=== PATIENT | female | born 1990 | race African-American/Black ===

== ENCOUNTER 2017-03-31 18:12 | Emergency (ER) | payer SELFPAY ==
[~2017-03-31] VITALS: Ht 157.5 cm; Wt 47.0 kg
[2017-03-31 18:15] VITALS: BP 122/70; PULSE 121; RESP 12; TEMP 98.2; O2SAT 96
[2017-03-31 18:22] VITALS: PULSE 116
[2017-04-01] MEDS ORDERED: TERC0.8C VAGINAL (16:06)
== END 2017-03-31 19:25 | disposition left against medical advice (07) ==
LOC: NED 18:12
DX: R05 Cough (principal)
CPT/HCPCS: 99281

== ENCOUNTER 2017-11-06 23:04 | Emergency (ER) | payer OTHER ==
[~2017-11-06 23:04] MED LIST: PREN1CAP33 PO; TERC0.8C VAGINAL
--- NOTE | 2017-11-06 23:49 | PD ---
HPI Chief Complaint Contractions Date Seen: November 06, 2017 Time Seen: 23:45 Travel History International Travel<30 Days: No Contact w/Intl Traveler<30Days: No Known Affected Area: No History of Present Illness HPI Patient is 27-year-old black female 40 weeks [facility] presents complaining of contractions and spotting, no fluid leakage. heart rate tracing is reactive and she is vicky every 2-3 minutes Weeks Gestation: 40 Para: 1 : 2 History Obstetric History Obstetric History 1 vaginal delivery Social History Alcohol Use: No Tobacco Use: No Substance Abuse: No Allergies-Medications (Allergen,Severity, Reaction): Coded Allergies: ibuprofen (Unverified Allergy, Intermediate, HIVES, 06/24/17) Home Meds Active Scripts Vit W/ Fe Polysacch C (Vitafol Fe+ 90-1-200 & 50 mg) 90 Mg Iron-1 Mg- 50 Mg-200 Mg Cap, 1 TAB PO DAILY, #30 BOTTLE 11 Refills Prov:Makayla Esqueda [facility] 06/24/17 Terconazole Vaginal Cream (Terconazole Vaginal Cream) 0.8 % Cream, 1 APPL VAGINAL HS for Fungal Infection, #20 GM 1 Refill For 3 days. Prov:Ya Carr CNM [facility] 06/18/17 Review of Systems General / Constitutional: No: Fever, Weight Gain, Chills, Other Eyes: No: Diploplia, Blurred Vision, Visual changes, Pain, Photophobia HENT: No: Headaches, Vertigo, Lightheadedness Cardiovascular: No: Irregular Rhythm, Chest Pain or Discomfort, Palpitations, Tachycardia, Syncope, Varicosities, Edema, Cyanosis Respiratory: No: Cough, Short of Breath, Other Gastrointestinal: No: Nausea, Vomiting, Diarrhea Genitourinary: No: Decreased Urinary Output, Oliguria Musculoskeletal: No: Limited ROM, Weakness, Cramping, Edema, Pain Skin: No Rash, No Itching, No Dryness, No Lumps, No Change in Pigmentation, No Change in Nails, No Alopecia, No Lesions Neurologic: No: Weakness, Dizziness, Syncope, Focal Abnormalities, Coordination Problem, Headache, Slurred Speech, Seizures Psychiatric: No: Depression, Suicidal Ideations, Homicidal Ideation Endocrine: No: Heat Intolerance, Cold Intolerance, Polydipsia, Polyuria, Other Physical Exam Narrative GENERAL: Well-nourished, well-developed patient. SKIN: Warm and dry. HEAD: Normocephalic and atraumatic. EYES: No scleral icterus. No injection or drainage. ENT: No nasal drainage noted. Mucous membranes pink. Airway patent. NECK: Supple, trachea midline. No JVD. CARDIOVASCULAR: Regular rate and rhythm without murmurs, gallops, or rubs. RESPIRATORY: Breath sounds equal bilaterally. No accessory muscle use. BREASTS: Bilateral exam showed no masses , no retractions, no nipple discharge. ABDOMEN/GI: Abdomen soft, non-tender, bowel sounds present, no rebound, no guarding Gravid to [37-] weeks size Fundal Height: [37-] GENITOURINARY: External Genitalia: intact and normal in appearance BUS glands: [-] Cervix: [post-] Dilatation: [0-] Effacement: [0-] Station: [-3] Presentation: [-vtx by US] Membranes: [intact ] Uterine Contractions: [-q 3 min] FHT's: Category: [-1] Baseline: [133-] Reactive: [R-] Variability: [-mod] Decels: [none-] EXTREMITIES: No cyanosis or edema. BACK: Nontender without obvious deformity. No CVA tenderness. NEUROLOGICAL: Awake and alert. Motor and sensory grossly within normal limits. Five out of 5 muscle strength in all muscle groups. Normal speech. MDM Interpretation(s) 27-year-old white female at 40 weeks with contractions and minimal spotting, no leakage of fluid. Cervix is still closed was closed in a prior check and is still essentially closed and very high, ultrasound was done to assure there was vertex and it is vertex, NST is reactive and she is vicky every 2-3 minutes but yet she is not in active labor cervix is still closed Plan Plan to discharge home to bedrest, increase fluids, Tylenol as needed, heating pad or hot bath or symptoms, return for increasing pain or other symptoms Diagnosis Diagnosis: Primary Impression: [place] contractions Additional Impression: 40 weeks gestation of Disposition: DISCHARGE HOME Condition: Stable Gumaro Martinez II, MD November 06, 2017 23:49
== END 2017-11-07 00:03 | disposition home or self-care (01) ==
LOC: HOBED 23:04
DX: O47.1 False labor at or after 37 completed weeks of gestation (principal); Z3A.40 40 weeks gestation of pregnancy; Z88.6 Allergy status to analgesic agent
CPT/HCPCS: 59025; 76815

== ENCOUNTER 2017-11-07 02:57 | Inpatient (IN) | payer OTHER ==
[~2017-11-07] VITALS: Ht 160 cm; Wt 60.0 kg
[2017-11-07] MEDS: LACTATED RINGER'S 1000 ML IV SCH ×2 (02:23→03:34)
--- NOTE | 2017-11-07 03:14 | HHI.HP ---
History & Physical H&P OB ED Note (Detail) Patient Name: Cuca Leong Unit Number: [id number] Date of : 1990 Patient Status: Departed Emergency Room Attending Doctor: Gumaro Martinez II, MD HPI HPI Chief Complaint Contractions Date Seen: November 06, 2017 Time Seen: 23:45 Travel History International Travel<30 Days: No Contact w/Intl Traveler<30Days: No Known Affected Area: No History of Present Illness HPI Patient is 27-year-old black female 40 weeks [facility] presents complaining of contractions and spotting, no fluid leakage. heart rate tracing is reactive and she is vicky every 2-3 minutes Weeks Gestation: 40 Para: 1 : 2 History (Limited) History Obstetric History Obstetric History 1 vaginal delivery Social History Alcohol Use: No Tobacco Use: No Substance Abuse: No Allergies-Medications Allergies-Medications (Allergen,Severity, Reaction): Coded Allergies: ibuprofen (Unverified Allergy, Intermediate, HIVES, 06/24/17) Home Meds Active Scripts Vit W/ Fe Polysacch C (Vitafol Fe+ 90-1-200 & 50 mg) 90 Mg Iron-1 Mg- 50 Mg-200 Mg Cap, 1 TAB PO DAILY, #30 BOTTLE 11 Refills Prov:Makayla Esqueda [facility] 06/24/17 Terconazole Vaginal Cream (Terconazole Vaginal Cream) 0.8 % Cream, 1 APPL VAGINAL HS for Fungal Infection, #20 GM 1 Refill For 3 days. Prov:Ya Carr CNM [facility] 06/18/17 ROS Review of Systems General / Constitutional: No: Fever, Weight Gain, Chills, Other Eyes: No: Diploplia, Blurred Vision, Visual changes, Pain, Photophobia HENT: No: Headaches, Vertigo, Lightheadedness Cardiovascular: No: Irregular Rhythm, Chest Pain or Discomfort, Palpitations, Tachycardia, Syncope, Varicosities, Edema, Cyanosis Respiratory: No: Cough, Short of Breath, Other Gastrointestinal: No: Nausea, Vomiting, Diarrhea Genitourinary: No: Decreased Urinary Output, Oliguria Musculoskeletal: No: Limited ROM, Weakness, Cramping, Edema, Pain Skin: No Rash, No Itching, No Dryness, No Lumps, No Change in Pigmentation, No Change in Nails, No Alopecia, No Lesions Neurologic: No: Weakness, Dizziness, Syncope, Focal Abnormalities, Coordination Problem, Headache, Slurred Speech, Seizures Psychiatric: No: Depression, Suicidal Ideations, Homicidal Ideation Endocrine: No: Heat Intolerance, Cold Intolerance, Polydipsia, Polyuria, Other Physical Exam Physical Exam Narrative GENERAL: Well-nourished, well-developed patient. SKIN: Warm and dry. HEAD: Normocephalic and atraumatic. EYES: No scleral icterus. No injection or drainage. ENT: No nasal drainage noted. Mucous membranes pink. Airway patent. NECK: Supple, trachea midline. No JVD. CARDIOVASCULAR: Regular rate and rhythm without murmurs, gallops, or rubs. RESPIRATORY: Breath sounds equal bilaterally. No accessory muscle use. BREASTS: Bilateral exam showed no masses , no retractions, no nipple discharge. ABDOMEN/GI: Abdomen soft, non-tender, bowel sounds present, no rebound, no guarding Gravid to [37-] weeks size Fundal Height: [37-] GENITOURINARY: External Genitalia: intact and normal in appearance BUS glands: [-] Cervix: [ant-] Dilatation: [3-4-] Effacement: [70-] Station: [-2] Presentation: [-vtx by US] Membranes: [intact ] Uterine Contractions: [-q 3 min] FHT's: Category: [-1] Baseline: [133-] Reactive: [R-] Variability: [-mod] Decels: [none-] EXTREMITIES: No cyanosis or edema. BACK: Nontender without obvious deformity. No CVA tenderness. NEUROLOGICAL: Awake and alert. Motor and sensory grossly within normal limits. Five out of 5 muscle strength in all muscle groups. Normal speech. Data Data [facility] MDM Interpretation(s) 27-year-old white female at 40 weeks with contractions and minimal spotting, no leakage of fluid. Cervix is 3-4 cm/70/-2 ultrasound was done to assure there was vertex and it is vertex, NST is reactive and she is vicky every 2-3 minutes Plan to Admit to L&D Diagnosis Diagnosis: Primary Impression: Labor Additional Impression: 40 weeks gestation of Disposition: ADMIT Condition: Stable Gumaro Martinez II, MD November 07, 2017 Gumaro Martinez II, MD November 07, 2017 03:14
[2017-11-07] MEDS ORDERED: LACTATED RINGER'S 1000 ML BOLUS IV PRN (03:30)
[2017-11-07] MEDS ORDERED: LIDOCAINE HCL 1% 50 ML VIAL INFIL PRN (03:30)
[2017-11-07] MEDS ORDERED: OXYTOCIN 30 UNITS 500ML PREMIX IV ONE (03:30)
[2017-11-07] MEDS ORDERED: CITRIC ACID-SODIUM CITRATE LIQ 30 ML UDC PO SCH (03:30)
[2017-11-07] MEDS ORDERED: NS 1000 ML IV PRN (03:30)
[2017-11-07] MEDS ORDERED: ONDANSETRON ODT 4 MG TAB PO PRN ×2 (03:30→08:00)
[2017-11-07] MEDS ORDERED: NS 500 ML BOLUS IV PRN (03:30)
[2017-11-07] MEDS ORDERED: LIDOCAINE HCL 1% 50 ML VIAL I-DERMAL PRN (03:30)
[2017-11-07] MEDS ORDERED: MINERAL OIL 10 ML VIAL TOPICAL PRN (03:30)
[2017-11-07] MEDS ORDERED: NO SYSTEM NARCOTICS PRN (04:15)
[2017-11-07] MEDS ORDERED: ePHEDrine/NS 25 MG/5 ML SYRINGE IV PUSH PRN (04:15)
[2017-11-07] MEDS ORDERED: DO NOT ADMINISTER ANTICOAGULANTS PRN (04:15)
[2017-11-07] MEDS ORDERED: fentaNYL 2MCG-BUPIV 0.125% 100 ML EPIDURAL PRN (04:15)
[2017-11-07 05:17] LABS: BILIRUBIN, URINE NEG (NEG); BLOOD, URINE MOD (NEG); GLUCOSE,URINE NEG (NEG); KETONE, URINE NEG (NEG); NITRITE,URINE NEG (NEG); PH, URINE 6.5 (5.0-8.5); URINE COLOR LIGHT-YELLOW (YELLW/STRAW); URINE LEUKOCYTE ESTERASE TRACE (NEG)
[2017-11-07] MEDS ORDERED: TERBUTALINE INJ 1 MG/ML AMP ONE (06:14)
[2017-11-07 06:28] LABS: BACTERIA, URINE RARE /hpf; RBC, URINE 0-3 /hpf (0-3); WBC, URINE 0-2 /hpf (0-5)
[2017-11-07] MEDS ORDERED: ACETAMINOPHEN 1000 MG/100 ML 100 ML IV ONE (06:39)
[2017-11-07] MEDS ORDERED: MORPHINE SULFATE PF 5 MG/10 ML VIAL ONE (06:39)
[2017-11-07 07:40] LABS: AUTOMATED NEUTROPHIL # 8.1 TH/MM3 (1.8-7.7); BASOPHIL # 0.1 TH/MM3 (0-0.2); BASOPHIL % 0.5 % (0.0-2.0); EOSINOPHIL # 0.1 TH/MM3 (0-0.4); EOSINOPHIL % 0.6 % (0.0-4.0); HEMATOCRIT 31.7 % (35.0-46.0); HEMOGLOBIN 10.3 GM/DL (11.6-15.3); LYMPH % 17.7 % (9.0-44.0); MEAN CELL VOLUME 85.6 FL (80.0-100.0); MEAN CORPUSCULAR HEMOGLOBIN 27.7 PG (27.0-34.0); MEAN CORPUSCULAR HGB CONC 32.4 % (32.0-36.0); MEAN PLATELET VOLUME 11.1 FL (7.0-11.0); NEUT % 72.2 % (16.0-70.0); PLATELET COUNT 163 TH/MM3 (150-450); RED BLOOD COUNT 3.71 MIL/MM3 (4.00-5.30); RED CELL DISTRIBUTION WIDTH 16.1 % (11.6-17.2); WHITE BLOOD COUNT 11.3 TH/MM3 (4.0-11.0)
[2017-11-07] MEDS ORDERED: ZOLPIDEM TARTRATE 5 MG TAB PO PRN (08:00)
[2017-11-07] MEDS ORDERED: IBUPROFEN 600 MG TAB PO PRN (08:00)
[2017-11-07] MEDS ORDERED: ACETAMINOPHEN 325 MG TAB PO PRN (08:00)
[2017-11-07] MEDS ORDERED: SODIUM CHLORIDE 0.9% FLUSH 10 ML FLUSH IV FLUSH PRN (08:00)
[2017-11-07] MEDS ORDERED: OXYTOCIN 30 UNITS-500ML PREMIX 500 ML IV ONE (08:00)
[2017-11-07] MEDS ORDERED: KETOROLAC TROMETHAMINE 60 MG/2 ML (IM) VIAL IM PRN (08:00)
[2017-11-07] MEDS: SODIUM CHLORIDE 0.9% FLUSH 10 ML FLUSH IV FLUSH SCH ×2 (09:00→21:00)
--- NOTE | 2017-11-07 09:04 | RADRPT ---
EXAM DATE/TIME: 11/07/2017 07:33 [place] COMPARISON: No previous studies available for comparison. INDICATIONS : Foreign body. Instrument count. . MEDICAL HISTORY : None. SURGICAL HISTORY : None. ENCOUNTER: Initial ACUITY: 1 day PAIN SCORE: Non-responsive. LOCATION: Abdomen. FINDINGS: Frontal view of the right lower quadrant/pelvis demonstrates no metallic foreign bodies. CONCLUSION: No metallic foreign body seen. Steve Mayer MD on November 07, 2017 at 9:01 Board Certified Radiologist. This report was verified electronically.
--- NOTE | 2017-11-07 09:27 | MP ---
cc: Gumaro Martinez MD DATE OF OPERATION: PREOPERATIVE DIAGNOSIS: Nonreassuring heart rate tracing, vaginal bleeding. POSTOPERATIVE DIAGNOSIS: Nonreassuring heart rate tracing, vaginal bleeding, small abruption of the placenta, thick meconium amniotic fluid. PROCEDURE PERFORMED: Primary low transverse section. SURGEON: Dr. Martinez. ANESTHESIA: Epidural. PREOP NOTE: The patient is a 27-year-old black female, G2, P1, at 40 weeks, who presented in labor with contractions and vaginal spotting. She was admitted in labor at 34 cm, was allowed to labor on her own and she had spontaneous rupture of membranes with a large amount of bloody fluid and then continued to pass small blood clots and bleeding as she dilated her cervix to 8 cm. It was at that point that the baby began to not tolerate labor with large late decelerations. It was felt the baby cannot tolerate further labor and that she was not close enough to being able to deliver vaginally, so a section was opted for. PROCEDURE: The patient was taken to the operating room and placed in supine position on the operating table. With adequate epidural anesthesia administered, she was prepped and draped. A Pfannenstiel incision was made in the lower abdomen and carried through fascia sharply. The fascia dissected off the rectus muscle and the rectus split in the midline. The abdominal cavity was entered sharply. The peritoneal cavity entered superiorly inferiorly and stretched open. The bladder blade was placed in the lower edge of the incision. Visceral peritoneum reflected off lower uterine segment and placed on the bladder blade. A transverse hysterotomy was made, extended bluntly bilaterally and a female infant was delivered at 6:46 a.m. Apgars 8 and 9, weight 2715 grams. Cord pH 7.23. Cord blood obtained. There was no delayed cord clamping. Placenta manually extracted and noted to have a small area of what appeared to be abruption on its margin and was sent to pathology. The uterus exteriorized. The uterus cleaned of all remnants of membrane and the hysterotomy closed in running layer 0 chromic, followed by imbricating suture of same. Hemostasis was achieved with a couple of stick ties, a [id number] in the lower uterine segment. The bladder reapproximated with a running layer, 2-0 Vicryl. The uterus replaced in peritoneal cavity. Ovaries and tubes within normal limits. The parietal peritoneum closed in running layer of 2-0 Vicryl. Muscle reapproximated with stick ties of chromic and Vicryl. The fascia was then closed in running layer of 0 Vicryl. Skin closed with 3-0 Monocryl subcuticular stitch. Pressure dressing applied. Estimated blood loss was 500 mL. There were no complications. There was not a sponge count because of the emergent nature of the procedure, but x-ray was shot after the procedure and was free of any retained sponge or foreign body. The patient was taken to recovery in stable condition. MD PRISCILLA Lopez/MANSI , 07:43 AM , 09:26 AM
[2017-11-07] MEDS ORDERED: EPIDURAL-NALOXONE HCL 0.4 MG/ML AMP IV PUSH PRN (10:15)
[2017-11-07] MEDS ORDERED: EPIDURAL-NO SYSTEMIC NARCOTICS PRN (10:15)
[2017-11-07] MEDS ORDERED: EPIDURAL-DIPHENHYDRAMINE HCL 50 MG/ML VIAL IV PUSH PRN (10:15)
[2017-11-07] MEDS ORDERED: EPIDURAL-DO NOT ADMINISTER ANTICOAGULANTS PRN (10:15)
[2017-11-07] MEDS ORDERED: OXYTOCIN 10 UNIT/ML AMP IV ONE (12:00)
[2017-11-07] MEDS ORDERED: ONDANSETRON HCL 4 MG/2 ML VIAL IV ONE (12:00)
[2017-11-07] MEDS ORDERED: LACTATED RINGER'S 1000 ML INJ 2,000 ML IV ONE (12:00)
[2017-11-07] MEDS ORDERED: DEXAMETHASONE SOD PHOS 4 MG/ML VIAL IV ONE (12:00)
[2017-11-07] MEDS ORDERED: ceFAZolin INJ 1,000 MG VIAL IV ONE (12:00)
[2017-11-07] MEDS ORDERED: LIDOCAINE 2%/EPINEPHrine PF 1:200,000 20ML SDV OTHER ONE (12:00)
[2017-11-07] MEDS ORDERED: LACTATED RINGER'S 1000 ML INJ 1,000 ML IV SCH (12:49)
[2017-11-07] MEDS ORDERED: OXYTOCIN 30 UNITS-500ML PREMIX 500 ML IV PRN (13:00)
[2017-11-07] MEDS: ACETAMINOPHEN 1000 MG/100 ML 100 ML IV SCH ×2 (15:44→23:00)
[2017-11-07] MEDS: EPIDURAL-DIPHENHYDRAMINE HCL 50 MG CAP PO PRN (15:44)
[2017-11-07] MEDS: oxyCODONE/ACETAMINOPHEN 5 MG/325 MG TAB PO PRN ×2 (15:44→21:07)
[2017-11-07] MEDS: DOCUSATE SODIUM 50 MG/SENNA 8.6 MG TAB PO PRN (21:07)
[2017-11-08] MEDS: oxyCODONE/ACETAMINOPHEN 5 MG/325 MG TAB PO PRN ×5 (02:29→19:46)
[2017-11-08] MEDS: EPIDURAL-DIPHENHYDRAMINE HCL 50 MG CAP PO PRN (02:55)
[2017-11-08 05:55] LABS: AUTOMATED NEUTROPHIL # 10.3 TH/MM3 (1.8-7.7); BASOPHIL % 0.2 % (0.0-2.0); EOSINOPHIL # 0.1 TH/MM3 (0-0.4); EOSINOPHIL % 0.4 % (0.0-4.0); HEMATOCRIT 25.5 % (35.0-46.0); HEMOGLOBIN 8.2 GM/DL (11.6-15.3); LYMPHOCYTE # 1.7 TH/MM3 (1.0-4.8); MEAN CELL VOLUME 85.5 FL (80.0-100.0); MEAN CORPUSCULAR HEMOGLOBIN 27.4 PG (27.0-34.0); MEAN PLATELET VOLUME 10.2 FL (7.0-11.0); MONO % 7.9 % (0.0-8.0); NEUT % 78.5 % (16.0-70.0); PLATELET COUNT 164 TH/MM3 (150-450); RED BLOOD COUNT 2.98 MIL/MM3 (4.00-5.30); RED CELL DISTRIBUTION WIDTH 16.1 % (11.6-17.2); WHITE BLOOD COUNT 13.2 TH/MM3 (4.0-11.0)
[2017-11-08] MEDS: SODIUM CHLORIDE 0.9% FLUSH 10 ML FLUSH IV FLUSH SCH (09:00)
--- NOTE | 2017-11-08 09:01 | HHI.OB ---
Subjective Post Operative Day: 1 Remarks Patient seen and examined this morning. AFVSS overnight. Postoperative day #1. Patient reports pain 7 out of 10 more severe on right lower quadrant. Incision not draining. Decreased lochia. Denies dysuria. No breast tenderness. Appetite good. No nausea or vomiting. No bowel movement yet. Ambulating well. Denies calf pain, dizziness, shortness of breath, or cough. She otherwise has no other complaints or concerns this morning. Objective Result Diagram: 11/08/17 0539 Objective Remarks GENERAL: Well-nourished, well-developed patient. CARDIOVASCULAR: Regular rate and rhythm without murmurs, gallops, or rubs. RESPIRATORY: Breath sounds equal bilaterally. No accessory muscle use. ABDOMEN/GI: Abdomen soft, tender to palpation to on Right lower quadrant, bowel sounds present. Incision: Clean, dry and intact. Fundus: Firm, non-tender at umbilicus. GENITOURINARY: Light to moderate bleeding. EXTREMITIES: No cyanosis or edema, non-tender, without signs of DVT. Medications and IVs Current Medications Medications (Trade) Dose Ordered Sig/Claudia Route Start Time Stop Time Status Last Admin Lactated Ringer's 1,000 ml @ 3,000 mls/hr BOLUS PRN IV 11/07/17 03:30 Sodium Chloride 500 ml @ 1,000 mls/hr BOLUS PRN IV 11/07/17 03:30 Sodium Chloride 1,000 ml @ 100 mls/hr Q10H PRN IV 11/07/17 03:30 (Bicitra Liq) 30 ml ONLINE FACILITATOR PO 11/07/17 03:30 11/10/17 03:29 (Muri-Lube Oil) 10 ml UNSCH PRN TOPICAL 11/07/17 03:30 Fentanyl/ Bupivacaine HCl 100 ml @ 0 mls/hr TITRATE PRN EPIDURAL 11/07/17 04:15 Oxytocin 500 ml @ 100 mls/hr UNSCH X1 PRN IV 11/07/17 13:00 11/08/17 12:59 (NS Flush) 2 ml BID IV FLUSH 11/07/17 09:00 (NS Flush) 2 ml UNSCH PRN IV FLUSH 11/07/17 08:00 (Mylicon Chew) 80 mg QID PRN PO 11/07/17 08:00 (Tylenol) 650 mg Q6H PRN PO 11/07/17 08:00 11/07/17 11:34 (Percocet 5-325 Mg) 1 tab Q4H PRN PO 11/07/17 08:00 11/08/17 07:16 (Percocet 5-325 Mg) 2 tab Q4H PRN PO 11/07/17 08:00 (Mandy-Colace) 2 tab Q12H PRN PO 11/07/17 08:00 11/07/17 21:07 (Ambien) 5 mg HS PRN PO 11/07/17 08:00 (M-M-R Ii Inj) 0.5 ml ONCE ONCE SQ 11/08/17 16:00 11/08/17 16:01 (Boostrix Inj) 0.5 ml ONCE ONCE IM 11/08/17 16:00 11/08/17 16:01 (Zofran Odt) 4 mg Q6H PRN PO 11/07/17 08:00 ([facility] Nursing Information) NO SYSTEMIC NARCOTICS TO BE GIVEN FO... UNSCH PRN .XX 11/07/17 10:15 11/08/17 10:14 (Narcan Inj) 0.4 mg UNSCH PRN IV PUSH 11/07/17 10:15 11/08/17 10:14 (Benadryl Inj) 25 mg Q6H PRN IV PUSH 11/07/17 10:15 11/08/17 10:14 (Benadryl) 50 mg Q6H PRN PO 11/07/17 10:15 11/08/17 10:14 11/08/17 02:55 ([facility] Nursing Information) ALL NURSING DEPARTMENTS UNSCH PRN .XX 11/07/17 10:15 11/08/17 10:14 Assessment/Plan Problem List: (1) 40 weeks gestation of ICD Codes: Z3A.40 - 40 weeks gestation of Plan: 27 year-old G 2 p2 POD#2 s/p . 1. Postoperative Care - AFVSS - Incision c/d/i -Patient with slight decrease in postop H&H to 8.2. Follow repeat H&H - Percocet and Motrin prn pain - Encouraged OOB, as tolerated - Advised pelvic rest x 6 weeks - Contraception: Patient interested in OCPs for control were discussed with her doctor as an outpatient - F/u in 1 week with OB provider for incision check (2) Status post ICD Codes: Z98.891 - History of uterine scar from previous surgery Pham Echeverria MD, R1 November 08, 2017 09:01
[2017-11-08 11:40] LABS: AUTOMATED NEUTROPHIL # 10.6 TH/MM3 (1.8-7.7); BASOPHIL % 0.3 % (0.0-2.0); EOSINOPHIL % 0.2 % (0.0-4.0); HEMATOCRIT 24.6 % (35.0-46.0); LYMPH % 10.6 % (9.0-44.0); LYMPHOCYTE # 1.3 TH/MM3 (1.0-4.8); MEAN CELL VOLUME 84.9 FL (80.0-100.0); MEAN CORPUSCULAR HEMOGLOBIN 27.8 PG (27.0-34.0); MEAN CORPUSCULAR HGB CONC 32.7 % (32.0-36.0); MEAN PLATELET VOLUME 9.9 FL (7.0-11.0); MONO % 6.1 % (0.0-8.0); MONOCYTE # 0.8 TH/MM3 (0-0.9); NEUT % 82.8 % (16.0-70.0); PLATELET COUNT 166 TH/MM3 (150-450); RED CELL DISTRIBUTION WIDTH 16.2 % (11.6-17.2); WHITE BLOOD COUNT 12.7 TH/MM3 (4.0-11.0)
[2017-11-08] MEDS ORDERED: DIPHTH/TETANUS/ACEL PERTUSSIS (BOOSTER) 0.5 ML VIAL/PFS IM ONE (16:00)
[2017-11-08] MEDS ORDERED: MEASLES, MUMPS, RUBELLA VACCINE 0.5 ML VIAL SQ ONE (16:00)
[2017-11-08] MEDS: DOCUSATE SODIUM 50 MG/SENNA 8.6 MG TAB PO PRN (19:46)
[2017-11-08] MEDS: SIMETHICONE 80 MG CHEWABLE TAB PO PRN (19:46)
[2017-11-09] MEDS: oxyCODONE/ACETAMINOPHEN 5 MG/325 MG TAB PO PRN ×3 (00:18→11:31)
[2017-11-09] MEDS: DOCUSATE SODIUM 50 MG/SENNA 8.6 MG TAB PO PRN (05:49)
[2017-11-09] MEDS: SIMETHICONE 80 MG CHEWABLE TAB PO PRN (05:49)
--- NOTE | 2017-11-09 08:16 | HHI.OB ---
Subjective Post Operative Day: 2 Remarks Patient seen and examined this morning. AFVSS overnight. Postoperative day #2. Pain is improved from yesterday patient rates 3/10 while she is in bed and 7/10 when she is moving. Incision not draining. Decreased lochia. Denies dysuria. No breast tenderness. Appetite good. No nausea or vomiting. Positive flatus. No bowel movement yet. Ambulating well. Denies calf pain, shortness of breath, or cough. She otherwise has no other complaints or concerns this morning. Objective Result Diagram: 11/08/17 1129 Objective Remarks GENERAL: Well-nourished, well-developed patient. CARDIOVASCULAR: Regular rate and rhythm without murmurs, gallops, or rubs. RESPIRATORY: Breath sounds equal bilaterally. No accessory muscle use. ABDOMEN/GI: Abdomen soft, tender to palpation to on Right lower quadrant, bowel sounds present. Incision: Clean, dry and intact. Fundus: Firm, non-tender at umbilicus. GENITOURINARY: Light to moderate bleeding. EXTREMITIES: No cyanosis or edema, non-tender, without signs of DVT. Medications and IVs Current Medications Medications (Trade) Dose Ordered Sig/Claudia Route Start Time Stop Time Status Last Admin Lactated Ringer's 1,000 ml @ 3,000 mls/hr BOLUS PRN IV 11/07/17 03:30 Sodium Chloride 500 ml @ 1,000 mls/hr BOLUS PRN IV 11/07/17 03:30 Sodium Chloride 1,000 ml @ 100 mls/hr Q10H PRN IV 11/07/17 03:30 (Bicitra Liq) 30 ml [employer] SALES REPRESENTATIVE PO 11/07/17 03:30 11/10/17 03:29 (Muri-Lube Oil) 10 ml UNSCH PRN TOPICAL 11/07/17 03:30 Fentanyl/ Bupivacaine HCl 100 ml @ 0 mls/hr TITRATE PRN EPIDURAL 11/07/17 04:15 (NS Flush) 2 ml BID IV FLUSH 11/07/17 09:00 (NS Flush) 2 ml UNSCH PRN IV FLUSH 11/07/17 08:00 (Mylicon Chew) 80 mg QID PRN PO 11/07/17 08:00 11/09/17 05:49 (Tylenol) 650 mg Q6H PRN PO 11/07/17 08:00 11/07/17 11:34 (Percocet 5-325 Mg) 1 tab Q4H PRN PO 11/07/17 08:00 11/08/17 07:16 (Percocet 5-325 Mg) 2 tab Q4H PRN PO 11/07/17 08:00 11/09/17 05:50 (Mandy-Colace) 2 tab Q12H PRN PO 11/07/17 08:00 11/09/17 05:49 (Ambien) 5 mg HS PRN PO 11/07/17 08:00 (Zofran Odt) 4 mg Q6H PRN PO 11/07/17 08:00 Assessment/Plan Problem List: (1) 40 weeks gestation of ICD Codes: Z3A.40 - 40 weeks gestation of Plan: 27 year-old G 2 p2 POD#2 s/p . 1. Postoperative Care - AFVSS - Incision c/d/i -Patient with slight decrease in postop H&H to 8.2. - Percocet and Motrin prn pain - Encouraged OOB, as tolerated - Advised pelvic rest x 6 weeks - Contraception: Patient interested in OCPs for control were discussed with her doctor as an outpatient - F/u in 1 week with OB provider for incision check (2) Status post ICD Codes: Z98.891 - History of uterine scar from previous surgery Discharge Planning possible discharge today depending on clinical course Pham Echeverria MD, R1 November 09, 2017 08:16
[2017-11-09] MEDS ORDERED: PERI PO (10:39)
[2017-11-09] MEDS ORDERED: OXYC1TAB63 PO (10:39)
--- NOTE | 2017-11-09 10:41 | HHI.DCPOC ---
Discharge Care Plan Diagnosis: (1) 40 weeks gestation of (2) Status post Goals to Promote Your Health * To prevent worsening of your condition and complications * To maintain your health at the optimal level Directions to Meet Your Goals Take your medications as prescribed Follow your dietary instruction Follow activity as directed Keep your appointments as scheduled Take your immunizations and boosters as scheduled If your symptoms worsen call your PCP, if no PCP go to Urgent Care Center or Emergency Room Smoking is Dangerous to Your Health. Avoid second hand smoke Call the 24-hour hour crisis hotline for domestic abuse at Pham Echeverria MD, R1 November 09, 2017 10:41
== END 2017-11-09 13:42 | disposition home or self-care (01) | DRG 765 ==
LOC: HOBED 02:57 → H2EB 03:04 → H1EA 09:54
PROVIDERS: ADMIT Obstetrics & Gynecology Maternal & Fetal Medicine; ATTEND Obstetrics & Gynecology Maternal & Fetal Medicine
PROC: 10D00Z1 Extraction of Products of Conception, Low, Open Approach (ICD-10-PCS; principal; 2017-11-07)
DX: O76 Abnormality in fetal heart rate and rhythm complicating labor and delivery (principal); O45.93 Premature separation of placenta, unspecified, third trimester; Z37.0 Single live birth; O77.0 Labor and delivery complicated by meconium in amniotic fluid; Z3A.40 40 weeks gestation of pregnancy
CPT/HCPCS: 74018; 80307; 81001; 82805; 85025; 86900; 86901; 88307; 90715; 99283; G0481; J0131; J0690; J1100; J2274; J2405; J2590; J3105; J7120; Q0163